=== PATIENT | female | born 1970 | race Two or more races ===

== ENCOUNTER → 2017-06-02 | Emergency (ER) | payer OTHER ==
[~2017-06-02] VITALS: Ht 170.2 cm; Wt 73.9 kg
[~2017-06-02] MED LIST: BENADRYL25 MG PO; NAPROSYN375 MG PO; NEURONTIN300 MG PO
== END | disposition left against medical advice (07) ==
LOC: ER 16:44
DX: R51 Headache (principal)

== ENCOUNTER → 2017-07-22 | Emergency (ER) | payer OTHER ==
[~2017-07-22] VITALS: Ht 170.2 cm; Wt 63.5 kg
[~2017-07-22] MED LIST changes: +ORASEP SPRAY30 ML MM
== END | disposition home or self-care (01) ==
LOC: ER 23:27
DX: B34.9 Viral infection, unspecified (principal)

== ENCOUNTER 2017-09-25 13:26 | Emergency (ER) | payer OTHER ==
[~2017-09-25] VITALS: Ht 170.2 cm; Wt 68.0 kg
[2017-09-25] MEDS ORDERED: MEDROLPACK PO (16:20)
== END 2017-09-25 16:28 | disposition home or self-care (01) ==
LOC: ER 13:26
DX: T78.3XXA Angioneurotic edema, initial encounter (principal)

== ENCOUNTER 2017-11-12 06:00 | Day surgery (SDC) | payer OTHER ==
[~2017-11-12 06:00] MED LIST changes: +MEDROLPACK PO
== END 2017-11-12 11:59 | disposition home or self-care (01) ==
LOC: CIR.AMB 06:00
DX: N84.0 Polyp of corpus uteri (principal)

== ENCOUNTER 2017-12-15 05:44 | Emergency (ER) | payer OTHER ==
[~2017-12-15] VITALS: Ht 170.2 cm; Wt 74.8 kg
== END 2017-12-15 12:51 | disposition home or self-care (01) ==
LOC: ER 05:44
DX: N93.8 Other specified abnormal uterine and vaginal bleeding (principal)

== ENCOUNTER 2018-02-08 01:18 | Emergency (ER) | payer OTHER ==
[~2018-02-08] VITALS: Ht 170.2 cm; Wt 72.6 kg
[2018-02-08] MEDS ORDERED: PERCOCET 5-3251 EACH PO (06:23)
== END 2018-02-08 08:08 | disposition home or self-care (01) ==
LOC: ER 01:18
DX: M54.32 Sciatica, left side (principal)

== ENCOUNTER 2018-08-25 03:51 | Emergency (ER) | payer OTHER ==
[~2018-08-25] VITALS: Ht 170.2 cm; Wt 68.0 kg
[~2018-08-25 03:51] MED LIST changes: -BENADRYL25 MG
[2018-08-25] MEDS ORDERED: BENADRYL25 MG (04:12)
[2018-08-25] MEDS ORDERED: MEDROLPACK PO (05:36)
== END 2018-08-25 05:43 | disposition home or self-care (01) ==
LOC: ER 03:51
DX: T78.3XXA Angioneurotic edema, initial encounter (principal)

== ENCOUNTER → 2018-08-25 | Emergency (ER) | payer OTHER ==
[~2018-08-25] MED LIST changes: +BENADRYL25 MG; +PERCOCET 5-3251 EACH PO
== END | disposition left against medical advice (07) ==
LOC: ER 08:47
DX: Z53.20 Procedure and treatment not carried out because of patient's decision for unspecified reasons (principal)

== ENCOUNTER → 2018-11-01 | Emergency (ER) | payer OTHER ==
[~2018-11-01] VITALS: Ht 170.2 cm; Wt 78.0 kg
[~2018-11-01] MED LIST changes: +BENADRYL25 MG
== END | disposition home or self-care (01) ==
LOC: ER 20:22
DX: T78.3XXA Angioneurotic edema, initial encounter (principal); R07.0 Pain in throat

== ENCOUNTER 2018-11-08 21:49 | Emergency (ER) | payer OTHER ==
[~2018-11-08] VITALS: Ht 175.3 cm; Wt 79.8 kg
== END 2018-11-08 23:37 | disposition home or self-care (01) ==
LOC: ER 21:49
DX: T78.49XA Other allergy, initial encounter (principal); X58.XXXA Exposure to other specified factors, initial encounter

== ENCOUNTER → 2019-01-11 | Emergency (ER) | payer OTHER ==
[~2019-01-11] VITALS: Ht 170.2 cm; Wt 73.9 kg
[~2019-01-11] MED LIST changes: +ALLERGY RELIEF10 M3 PO; +NEBUSAL4 M1 IH
== END | disposition home or self-care (01) ==
LOC: ER 19:20
DX: R09.81 Nasal congestion (principal)

== ENCOUNTER 2019-06-03 11:25 | Emergency (ER) | payer OTHER ==
[~2019-06-03] VITALS: Ht 175.3 cm; Wt 82.6 kg
== END 2019-06-03 14:27 | disposition home or self-care (01) ==
LOC: ER 11:25
DX: M62.830 Muscle spasm of back (principal)

== ENCOUNTER 2019-07-26 06:19 | Emergency (ER) | payer OTHER ==
[~2019-07-26] VITALS: Ht 170.2 cm; Wt 86.2 kg
== END 2019-07-26 09:42 | disposition home or self-care (01) ==
LOC: ER 06:19
DX: R00.2 Palpitations (principal); F06.4 Anxiety disorder due to known physiological condition

== ENCOUNTER 2019-08-17 20:09 | Emergency (ER) | payer OTHER ==
[~2019-08-17] VITALS: Ht 170.2 cm; Wt 82.1 kg
[2019-08-18] MEDS ORDERED: XANAX1 MG PO (15:10)
== END 2019-08-17 21:31 | disposition home or self-care (01) ==
LOC: ER 20:09
DX: R00.2 Palpitations (principal)

== ENCOUNTER 2019-08-18 11:17 | Emergency (ER) | payer OTHER ==
[~2019-08-18] VITALS: Ht 170.2 cm; Wt 82.6 kg
[2019-08-18] MEDS ORDERED: XANAX1 MG PO (15:10)
== END 2019-08-18 16:02 | disposition home or self-care (01) ==
LOC: ER 11:17
DX: R00.2 Palpitations (principal)

== ENCOUNTER 2020-02-21 14:28 | Emergency (ER) | payer OTHER ==
[~2020-02-21] VITALS: Ht 170.2 cm; Wt 84.8 kg
[~2020-02-21 14:28] MED LIST changes: +XANAX1 MG PO
[2020-02-21] MEDS ORDERED: BENADRYL25 MG (14:41)
[2020-02-21] MEDS ORDERED: MUPIROCIN1 G1 TOP (19:37)
== END 2020-02-21 19:49 | disposition home or self-care (01) ==
LOC: ER 14:28
DX: R10.2 Pelvic and perineal pain (principal); N93.8 Other specified abnormal uterine and vaginal bleeding

== ENCOUNTER 2020-03-06 22:30 | Emergency (ER) | payer OTHER ==
[~2020-03-06] VITALS: Ht 170.2 cm; Wt 81.6 kg
[~2020-03-06 22:30] MED LIST changes: +MUPIROCIN1 G1 TOP
== END 2020-03-07 01:11 | disposition home or self-care (01) ==
LOC: ER 22:30
DX: R60.0 Localized edema (principal); L50.8 Other urticaria; T78.1XXA Other adverse food reactions, not elsewhere classified, initial encounter; X58.XXXA Exposure to other specified factors, initial encounter

== ENCOUNTER → 2020-04-05 | Emergency (ER) | payer OTHER ==
[~2020-04-05] VITALS: Ht 170.2 cm
== END | disposition left against medical advice (07) ==
LOC: ER 19:57
DX: E16.1 Other hypoglycemia (principal)

== ENCOUNTER 2020-07-18 00:16 | Emergency (ER) | payer OTHER ==
[~2020-07-18] VITALS: Ht 170.2 cm; Wt 94.3 kg
== END 2020-07-18 02:37 | disposition home or self-care (01) ==
LOC: ER 00:16
DX: T78.1XXA Other adverse food reactions, not elsewhere classified, initial encounter (principal); T78.3XXA Angioneurotic edema, initial encounter; L23.6 Allergic contact dermatitis due to food in contact with the skin

== ENCOUNTER 2020-07-24 11:36 | Emergency (ER) | payer OTHER ==
[~2020-07-24] VITALS: Ht 170.2 cm; Wt 94.8 kg
[2020-07-24] MEDS ORDERED: VISTARIL25 MG PO ×2 (14:50→14:51)
== END 2020-07-24 14:54 | disposition home or self-care (01) ==
LOC: ER 11:36
DX: F41.8 Other specified anxiety disorders (principal)

== ENCOUNTER 2020-08-28 14:36 | Emergency (ER) | payer OTHER ==
[~2020-08-28] VITALS: Ht 170.2 cm; Wt 97.1 kg
[~2020-08-28 14:36] MED LIST changes: +VISTARIL25 MG PO
[2020-08-28] MEDS ORDERED: ACETAMINOPHEN650 M2 PO (19:52)
== END 2020-08-28 19:57 | disposition home or self-care (01) ==
LOC: ER 14:36
DX: R51.9 Headache, unspecified (principal); B34.9 Viral infection, unspecified; J06.9 Acute upper respiratory infection, unspecified

== ENCOUNTER → 2020-10-20 | Emergency (ER) | payer OTHER ==
[~2020-10-20] VITALS: Ht 170.2 cm; Wt 103.0 kg
[~2020-10-20] MED LIST changes: +ACETAMINOPHEN650 M2 PO
== END | disposition home or self-care (01) ==
LOC: ER 20:06
DX: T78.1XXA Other adverse food reactions, not elsewhere classified, initial encounter (principal); L29.8 Other pruritus

== ENCOUNTER 2021-04-27 21:00 | Emergency (ER) | payer OTHER ==
[~2021-04-27] VITALS: Ht 170.2 cm; Wt 90.7 kg
== END 2021-04-27 23:00 ==
LOC: ER 21:00
DX: B34.9 Viral infection, unspecified (principal); Z20.822 Contact with and (suspected) exposure to COVID-19

== ENCOUNTER 2021-05-11 10:25 | Emergency (ER) | payer OTHER ==
[~2021-05-11] VITALS: Ht 170.2 cm; Wt 114.3 kg
[2021-05-11] MEDS ORDERED: NORFLEX100MG PO (13:06)
== END 2021-05-11 13:27 | disposition home or self-care (01) ==
LOC: ER 10:25
DX: M54.50 Low back pain, unspecified (principal)

== ENCOUNTER 2021-07-24 16:37 | Emergency (ER) | payer OTHER ==
[~2021-07-24] VITALS: Ht 170.2 cm; Wt 113.9 kg
[~2021-07-24 16:37] MED LIST changes: +NORFLEX100MG PO
== END 2021-07-24 19:11 | disposition home or self-care (01) ==
LOC: ER 16:37
DX: J06.9 Acute upper respiratory infection, unspecified (principal); R51.9 Headache, unspecified

== ENCOUNTER 2021-09-23 14:36 | Emergency (ER) | payer OTHER ==
[~2021-09-23] VITALS: Ht 170.2 cm; Wt 115.2 kg
[2021-09-23] MEDS ORDERED: ZITHROMAX500 MG PO (18:20)
== END 2021-09-23 18:33 | disposition home or self-care (01) ==
LOC: ER 14:36
DX: J06.9 Acute upper respiratory infection, unspecified (principal); Z88.6 Allergy status to analgesic agent; Z91.011 Allergy to milk products; Z91.018 Allergy to other foods; Z20.822 Contact with and (suspected) exposure to COVID-19

== ENCOUNTER 2021-11-25 12:10 | Emergency (ER) | payer OTHER ==
[~2021-11-25] VITALS: Ht 170.2 cm; Wt 117.0 kg
[~2021-11-25 12:10] MED LIST changes: +ZITHROMAX500 MG PO
== END 2021-11-25 15:53 | disposition home or self-care (01) ==
LOC: ER 12:10
DX: R07.89 Other chest pain (principal); R00.2 Palpitations; Z88.6 Allergy status to analgesic agent; Z91.011 Allergy to milk products; Z91.013 Allergy to seafood; Z91.018 Allergy to other foods; R13.10 Dysphagia, unspecified

== ENCOUNTER 2022-01-14 04:05 | Emergency (ER) | payer OTHER ==
[~2022-01-14] VITALS: Ht 170.2 cm; Wt 116.1 kg
== END 2022-01-14 07:24 ==
LOC: ER 04:05
DX: R00.2 Palpitations (principal); Z87.898 Personal history of other specified conditions; Z88.6 Allergy status to analgesic agent; Z91.011 Allergy to milk products; Z88.8 Allergy status to other drugs, medicaments and biological substances; Z91.018 Allergy to other foods

== ENCOUNTER 2022-01-23 19:50 | Emergency (ER) | payer OTHER ==
[~2022-01-23] VITALS: Ht 170.2 cm; Wt 116.1 kg
== END 2022-01-23 22:07 | disposition home or self-care (01) ==
LOC: ER 19:50
DX: R07.89 Other chest pain (principal); Z88.6 Allergy status to analgesic agent; Z91.013 Allergy to seafood; Z91.011 Allergy to milk products; Z91.014 Allergy to mammalian meats; Z91.048 Other nonmedicinal substance allergy status; V43.92XA Unspecified car occupant injured in collision with other type car in traffic accident, initial encounter; Y93.9 Activity, unspecified; Y92.413 State road as the place of occurrence of the external cause

== ENCOUNTER 2022-02-12 02:31 | Emergency (ER) | payer OTHER ==
[~2022-02-12] VITALS: Ht 170.2 cm; Wt 115.2 kg
[2022-02-12] MEDS ORDERED: ACETAMINOPHEN650 M2 PO (07:28)
[2022-02-12] MEDS ORDERED: MECLIZINE HCL25 MG PO (07:28)
== END 2022-02-12 08:06 | disposition home or self-care (01) ==
LOC: ER 02:31
DX: R51.9 Headache, unspecified (principal); H61.21 Impacted cerumen, right ear; Z88.6 Allergy status to analgesic agent; Z88.8 Allergy status to other drugs, medicaments and biological substances

== ENCOUNTER 2022-03-25 15:36 | Emergency (ER) | payer OTHER ==
[~2022-03-25] VITALS: Ht 160 cm; Wt 112.5 kg
[~2022-03-25 15:36] MED LIST changes: +ACETAMINOPHEN650 M2; +MECLIZINE HCL25 MG PO
== END 2022-03-25 23:05 | disposition home or self-care (01) ==
LOC: ER 15:36
DX: N93.9 Abnormal uterine and vaginal bleeding, unspecified (principal)

== ENCOUNTER 2022-04-29 06:43 | Emergency (ER) | payer OTHER ==
[~2022-04-29] VITALS: Ht 170.2 cm; Wt 112.5 kg
== END 2022-04-29 08:56 | disposition home or self-care (01) ==
LOC: ER
DX: R00.2 Palpitations (principal); Z88.6 Allergy status to analgesic agent; Z91.011 Allergy to milk products; Z91.013 Allergy to seafood; Z88.8 Allergy status to other drugs, medicaments and biological substances; Z91.018 Allergy to other foods

== ENCOUNTER → 2022-07-04 | Emergency (ER) | payer OTHER ==
[~2022-07-04] VITALS: Ht 170.2 cm; Wt 110.2 kg
== END | disposition left against medical advice (07) ==
LOC: ER 00:01
DX: Z53.21 Procedure and treatment not carried out due to patient leaving prior to being seen by health care provider (principal)

== ENCOUNTER → 2022-07-25 | Emergency (ER) | payer OTHER ==
[~2022-07-25] VITALS: Ht 170.2 cm; Wt 107.0 kg
== END | disposition left against medical advice (07) ==
LOC: ER 05:50
DX: Z53.21 Procedure and treatment not carried out due to patient leaving prior to being seen by health care provider (principal)

== ENCOUNTER → 2022-08-28 | Emergency (ER) | payer OTHER | END | disposition left against medical advice (07) | LOC: ER 21:08 | DX: Z53.21 Procedure and treatment not carried out due to patient leaving prior to being seen by health care provider (principal) ==

== ENCOUNTER 2022-12-19 20:54 | Emergency (ER) | payer OTHER ==
[~2022-12-19] VITALS: Ht 170.2 cm
== END 2022-12-19 22:20 | disposition home or self-care (01) ==
LOC: ER 20:54
DX: G50.0 Trigeminal neuralgia (principal); Z88.6 Allergy status to analgesic agent; Z88.8 Allergy status to other drugs, medicaments and biological substances

== ENCOUNTER 2022-12-25 15:01 | Emergency (ER) | payer OTHER ==
[~2022-12-25] VITALS: Ht 162.6 cm; Wt 111.6 kg
[2022-12-25] MEDS ORDERED: AMOX1TAB5 PO (16:58)
== END 2022-12-25 17:27 | disposition home or self-care (01) ==
LOC: ER 15:01
DX: S91.331A Puncture wound without foreign body, right foot, initial encounter (principal); X58.XXXA Exposure to other specified factors, initial encounter; Y93.89 Activity, other specified; Y92.89 Other specified places as the place of occurrence of the external cause; Y99.9 Unspecified external cause status; Z88.8 Allergy status to other drugs, medicaments and biological substances; Z88.6 Allergy status to analgesic agent; Z91.012 Allergy to eggs

== ENCOUNTER 2023-01-06 19:32 | Emergency (ER) | payer OTHER ==
[~2023-01-06] VITALS: Ht 170.2 cm; Wt 112.5 kg
[~2023-01-06 19:32] MED LIST changes: +AMOX1TAB5 PO
== END 2023-01-06 22:08 | disposition home or self-care (01) ==
LOC: ER 19:32
PROVIDERS: General Practice
DX: J06.9 Acute upper respiratory infection, unspecified (principal); Z20.822 Contact with and (suspected) exposure to COVID-19; Z88.6 Allergy status to analgesic agent; Z91.012 Allergy to eggs; Z88.8 Allergy status to other drugs, medicaments and biological substances; Z91.018 Allergy to other foods